=== PATIENT | male | born 1965 | race Caucasian/White ===

== ENCOUNTER 2018-10-17 02:52 | Emergency (ER) | payer OTHER ==
[~2018-10-17] VITALS: Ht 185.4 cm; Wt 115.0 kg
[~2018-10-17 02:52] MED LIST: ATOR20TA PO; HYDR-3237 PO; OLME1TAB30 PO
--- NOTE | 2018-10-17 03:14 | NUR ---
DYLAN FARRIS HAS BEEN IN TO EVAL PT. AND DISCUSS POC. AWAITING ORDERS.
[2018-10-17] MEDS ORDERED: KETOROLAC 30 MG/1 ML ONE (03:21)
--- NOTE | 2018-10-17 03:22 | NUR ---
PT. OUT OF ROOM FOR IMAGING. AWAITING RETURN TO MEDICATE FOR PAIN.
[2018-10-17] MEDS ORDERED: KETOROLAC 30 MG/1 ML IM ONE (03:30)
[2018-10-17] MEDS ORDERED: OMEP-110 PO (03:32)
--- NOTE | 2018-10-17 03:32 | NUR ---
PT. C/O LEFT FLANK PAIN THAT GOES TO LLQ ABD SINCE MIDNIGHT. REPORTS N/V X 2. DENIES NAUSEA AT THIS TIME. MEDICATED PER OCT. LAB AT FOR BLOOD DRAW.
--- NOTE | 2018-10-17 03:37 | NUR ---
PT. AWARE OF NEED FOR UA AND STATES HE IS UNABLE AT THIS TIME; REQUESTING WATER. UPDATED ON PLAN TO WAIT FOR CT RESULTS PRIOR TO WATER; PT. VERBALIZED UNDERSTANDING OF THIS. CALL LIGHT IN REACH.
[2018-10-17] MEDS ORDERED: ONDANSETRON ODT 4 MG ONE (03:40)
--- NOTE | 2018-10-17 03:42 | NUR ---
PT. WITH 100ML OF EMESIS. NEW ORDER RECEIVED AND PT. MEDICATED PER OCT.
[2018-10-17 03:43] LABS: BASOPHILS # (AUTO) 0.08 x10^3/uL (0-0.1); BASOPHILS % (AUTO) 1 % (0-1); EOSINOPHILS # (AUTO) 0.12 x10^3/uL (0-0.4); EOSINOPHILS % (AUTO) 1 % (1-7); LYMPHOCYTES # (AUTO) 1.43 x10^3/uL (1-3.4); LYMPHOCYTES % (AUTO) 14 % (22-44); MD NO; MEAN CORPUSCULAR HEMOGLOBIN 33.5 pg (27.5-34.5); MEAN CORPUSCULAR HGB CONC 34.6 g/dL (33.2-36.2); MEAN CORPUSCULAR VOLUME 96.6 fL (81-97); MEAN PLATELET VOLUME 8.5 fL (7.4-10.4); MONOCYTES % (AUTO) 6 % (2-9); NEUTROPHILS # (AUTO) 7.89 x10^3/uL (1.8-6.8); NEUTROPHILS % (AUTO) 78 % (42-75); PLATELET COUNT 271 x10^3/uL (130-400); RED BLOOD COUNT 4.67 x10^6/uL (4.38-5.82); RED CELL DISTRIBUTION WIDTH 12.9 % (9.4-14.8)
[2018-10-17 03:54] LABS: ALBUMIN 3.8 g/dL (3.4-5.0); ANION GAP 9 mmol/L (5-15); CALCIUM 8.9 mg/dL (8.5-10.1); CHLORIDE 112 mmol/L (98-107)
[2018-10-17 03:58] LABS: ALANINE AMINOTRANSFERASE 49 U/L (12-78); ALKALINE PHOSPHATASE 92 U/L (45-117); BILIRUBIN,TOTAL 0.6 mg/dL (0.2-1.0); CREATININE 0.98 mg/dL (0.7-1.3); TOTAL PROTEIN 7.4 g/dL (6.4-8.2)
[2018-10-17] MEDS ORDERED: ONDANSETRON ODT 4 MG PO ONE (04:00)
--- NOTE | 2018-10-17 04:05 | NUR ---
PT. REPORTS PAIN GETTING BETTER AND DOWN TO 3/10; BUT STATES PAIN COMES IN WAVES AND PT. APPEARS VERY UNCOMFORTABLE. REPORTS NAUSEA HAS CEASED. HAS BEEN UNABLE TO PROVIDE URINE SAMPLE STILL. CALL ANNA MEDLEY IN REACH.
[2018-10-17] MEDS ORDERED: HYDROmorphone 1 MG/ML, 1ML ONE ×2 (04:17→05:14)
--- NOTE | 2018-10-17 04:21 | NUR ---
PT. MEDICATED FOR PAIN INCREASE TO 8/10 TO LEFT FLANK AND LLQ ABD. PT. ALSO PROVIDED WITH WATER AFTER OK FROM DYLAN FARRIS. PT. REMAINS AWARE OF NEED FOR UA.
[2018-10-17] MEDS ORDERED: HYDROmorphone 1 MG/ML, 1ML IM ONE (04:30)
[2018-10-17] MEDS ORDERED: TAMSULOSIN 0.4 MG CAP.ER.24H ONE (04:30)
[2018-10-17] MEDS ORDERED: TAMSULOSIN 0.4 MG CAP.ER.24H PO ONE (04:30)
--- NOTE | 2018-10-17 05:24 | NUR ---
URINE COLLECTED AND SENT TO LAB.
[2018-10-17] MEDS ORDERED: HYDROmorphone 2 MG/ML, 1ML IVPush ONE (05:30)
--- NOTE | 2018-10-17 05:46 | NUR ---
CALLED LAB URINE DOESN'T SHOW IT'S RUNNING; THEY REPORT THEY DO HAVE IT AND WILL START RUNNING IT DARIA.
[2018-10-17 05:56] LABS: MICROSCOPIC NOT IND
[2018-10-17 05:59] LABS: CULTURE INDICATED? NO
--- NOTE | 2018-10-17 06:05 | NUR ---
CHART UP FOR RECHECK BY SAMPSON.
[2018-10-17 06:16] VITALS: BP 132/87
== END 2018-10-17 06:17 | disposition home or self-care (01) ==
LOC: ED 04:12
DX: N13.2 Hydronephrosis with renal and ureteral calculous obstruction (principal); I10 Essential (primary) hypertension; R11.2 Nausea with vomiting, unspecified
CPT/HCPCS: 36415; 74176; 80053; 81003; 85025; 96372; 96374; 99284; J1170; J1885; Q0162

== ENCOUNTER → 2018-11-02 | Outpatient (CLI) | payer OTHER ==
[~2018-11-02] MED LIST changes: +OMEP-110 PO
== END | disposition home or self-care (01) ==
LOC: CFH 10:06
PROVIDERS: ATTEND Student in an Organized Health Care Education/Training Program
DX: N13.2 Hydronephrosis with renal and ureteral calculous obstruction (principal); N28.1 Cyst of kidney, acquired; Z96.642 Presence of left artificial hip joint
CPT/HCPCS: 74176